=== PATIENT | female | born 1990 | race African-American/Black ===

== ENCOUNTER 2021-01-28 00:38 | Emergency (ER) | payer MEDICAID ==
[~2021-01-28] VITALS: Ht 162.6 cm; Wt 50.0 kg
[2021-01-28] MEDS ORDERED: ASPIRIN 81MG TABLET PO ONE (01:30)
[2021-01-28 01:53] LABS: BASOPHILS % 0.4 % (0.0-2.0); EOSINOPHILS % 0.5 % (0.0-5.0); HEMATOCRIT. 41.4 % (36.0-48.0); HEMOGLOBIN. 14.6 g/dL (12.0-16.0); LYMPHOCYTES % 21.9 % (20.0-50.0); MEAN CORPUSCULAR HEMOGLOBIN 39.4 pg (28.0-32.0); MEAN CORPUSCULAR VOLUME 111.5 fL (81.0-99.0); MONOCYTES % 8.3 % (2.0-8.0); NEUTROPHILS % 68.9 % (40.0-76.0); PLATELET 308 x1000/uL (130-400); RED BLOOD CELL COUNT 3.71 mill/uL (4.2-5.4); RED CELL DISTRIBUTION WIDTH 12.6 % (11.6-14.6)
[2021-01-28] MEDS: NITROGLYCERIN 0.4MG TABLET SL SL PRN ×3 (01:55→02:22)
[2021-01-28 02:00] LABS: CHLORIDE 109 mEq/L (98-107)
[2021-01-28 02:04] LABS: HCG SCREEN NEGATIVE
[2021-01-28] MEDS ORDERED: IBUP-2028 MT (03:29)
[2021-01-28] MEDS ORDERED: ACETAMINOPHEN 325MG TABLET PO ONE (04:30)
[2021-01-28 05:17] LABS: PLATELET ESTIMATE NORMAL
[2021-01-28 05:40] VITALS: BP 118/84
== END 2021-01-28 05:48 | disposition home or self-care (01) ==
LOC: ER 00:38
DX: R07.89 Other chest pain (principal); G40.909 Epilepsy, unspecified, not intractable, without status epilepticus; F17.210 Nicotine dependence, cigarettes, uncomplicated; J45.909 Unspecified asthma, uncomplicated; G43.909 Migraine, unspecified, not intractable, without status migrainosus
CPT/HCPCS: 36415; 71045; 80053; 84484; 84703; 85025; 85379; 93005; 99285; Z7610